=== PATIENT | male | born 1935 | race Caucasian/White ===

== ENCOUNTER → 2018-07-17 | Outpatient (CLI) | payer MEDICARE ==
--- NOTE | 2018-07-17 17:08 | Diagnostic Imaging Report ---
PROCEDURE: X-RAY MODIFIED BARIUM SWALLOW COMPARISON: None. INDICATION: Pharyngeal dysphagia Radiation Details: Fluoroscopy time: 1 minute, 21 seconds Cumulative dose: 0.94 mGy Cumulative dose area product: 34.8 cGycm2 DISCUSSION: Fluoroscopic examination was performed in conjunction with speech pathology during swallowing a variety of thin and thick liquid consistencies. Due to technical issues, cine loop images could not be stored. A small number of fluoroscopic still images were provided. Laryngeal penetration is demonstrated. The provided images do not demonstrate aspiration, although the speech pathology report notes one instance of trace aspiration with thin liquids. CONCLUSION: Modified barium swallow as above. Due to technical difficulty, the majority of images were not stored. Laryngeal penetration is demonstrated. Please refer to the speech pathology report for further details of trace aspiration. Signed by: Dr. Soheila Ha MD on 07/17/2018 5:05 PM
== END ==
LOC: DX 11:59
PROVIDERS: ATTEND Otolaryngology
DX: R13.13 Dysphagia, pharyngeal phase (principal)
CPT/HCPCS: 74230

== ENCOUNTER 2018-08-09 11:55 | Outpatient (RCR) | payer MEDICARE ==
--- NOTE | 2018-08-09 17:23 | NUR ---
Clinical Swallow Evaluation/Initial Treatment Session Patient is a 66 year old male with diagnosis of dysphagia. Per pts spouse, pt was diagnosed with Parkinsons approximately 10 years ago and is under the care of a neurologist. Pt participated in a modified barium swallow study on 07/17/18. Pt presented with moderate pharyngeal dysphagia c/b significant pharyngeal residue after the swallow and trace aspiration of thin liquids. Dysphagia was judged to be secondary to decreased hyolaryngeal excursion, decreased base of tongue strength, and decreased pharyngeal constriction during the swallow. Recommendation was made for dysphagia therapy to increase strength and coordination of swallow. Patient was seen today in the outpatient clinic for initial treatment of Neuromuscular Electrical Stimulation (NMES) with VitalStim Therapy and traditional dysphagia therapy with pharyngeal exercises. Pt was seen with spouse present. Oral motor exam revealed function that was grossly within normal limits. Patient tolerated room air. Hearing appeared to be WFL. Patient reported no change in his swallow skills since the modified barium swallow study. Pt confirmed that pt continues to choke and cough during meal times. Wet vocal quality noted during conversation. Provided extensive education re: need for therapy, purpose of exercises and NMES, and future plan of care. Pt indicated understanding. Pt was given water and hard candy. Pt was instructed to take small bites/sips and swallow hard, feeling all the muscles in his throat contract. Placement 3b was used to target the mylohyoid muscle, the anterior belly of the digastric muscle, the sternohyoid muscle, the omohyoid muscle, the geniohyoid muscle, and the middle pharyngeal constrictors. Channel 1 of the electrodes was aligned horizontally just above the hyoid bone and channel 2 of the electrodes was aligned horizontally at the level of the thyroid notch. This placement was used to improve base of tongue strength, pharyngeal constriction, and UES function. Pt initially tolerated 5.0 mA, but as the session progressed pt tolerated 9.0 mA. Pt received 45 minutes of stimulation. Cough noted X 3, throat clear X 2, and wet vocal quality was noted throughout the evaluation. During NMES an exercise program was presented, demonstrated, and discussed. Pt completed the exercises with moderate assistance. A home program was assigned. Pt verbalized understanding of the home exercise program. Education provided as indicated. All questions were answered. Pt/spouse stated that it would be better to attend treatment twice per week due to patient fatigue. Impressions: Pt tolerated initial session of NMES well. He continues to report and demonstrate s/s of aspiration during meals which significantly interferes with his quality of life. Pt is an excellent candidate for dysphagia exercises and NMES for improvement of strength and coordination of swallow. Recommendations: 1.Dysphagia therapy to include traditional exercises and NMES 2X/week for 6 weeks for a total of 12 treatment sessions 2.Home exercise program 3.Repeat MBS in 6 weeks with new goals to be determined at that time. Electronic Installer Goal: Pt will tolerate least restrictive diet without s/s of aspiration as judged by an objective evaluation. Short Term Goals: 1.Pt will complete 3 repetitions of a set of dysphagia exercises to improve laryngeal elevation, base of tongue retraction, and laryngeal closure, 10 repetitions per exercise, with minimal cues. 2.Pt will tolerate NMES for 45 60 minutes with no clinical s/s of aspiration to improve strength of pharyngeal constrictors, hyolaryngeal excursion, and safety with po intake. 3.Pt will complete home dysphagia exercise program targeting laryngeal elevation, base of tongue strength, and cricopharyngeal function independently. 4.Pt will follow aspiration precautions with independence. 5.Pt will participate in a repeat Modified Barium Swallow study to objectively re-assess swallow safety and function and determine safest diet. Senait Stapleton M.A. [facility] Date of Session: 08/09/18 Dysphagia Evaluation X 64 minutes JOSEPH NOMS Rating for Swallowing: Level 5
== END 2018-08-13 ==
LOC: ST 11:55
PROVIDERS: ATTEND Otolaryngology
DX: R13.13 Dysphagia, pharyngeal phase (principal); G20 Parkinson's disease

== ENCOUNTER 2018-09-12 13:00 | Outpatient (RCR) | payer MEDICARE ==
--- NOTE | 2018-09-12 15:35 | NUR ---
Clinical Swallow Re-Evaluation Patient is a 66 year old male with diagnosis of dysphagia. Per pts spouse, pt was diagnosed with Parkinsons approximately 10 years ago and is under the care of a neurologist. Pt participated in a modified barium swallow study on 07/17/18. Pt presented with moderate pharyngeal dysphagia c/b significant pharyngeal residue after the swallow and trace aspiration of thin liquids. Dysphagia was judged to be secondary to decreased hyolaryngeal excursion, decreased base of tongue strength, and decreased pharyngeal constriction during the swallow. Recommendation was made for dysphagia therapy to increase strength and coordination of swallow. Patient has attended 10 therapy sessions with of Neuromuscular Electrical Stimulation (NMES) with VitalStim Therapy and traditional dysphagia therapy with pharyngeal exercises. Short term goals and progress follow: 1.Pt will complete 3 repetitions of a set of dysphagia exercises to improve laryngeal elevation, base of tongue retraction, and laryngeal closure, 10 repetitions per exercise, with minimal cuespt completed exercises with maximal cues. 2.Pt will tolerate NMES for 45 60 minutes with no clinical s/s of aspiration to improve strength of pharyngeal constrictors, hyolaryngeal excursion, and safety with po intakept tolerated 60 minutes of NMES with thin liquid and hard candy at a max of 19.5 mA. Placement 2b was used to target the mylohyoid muscle, the sternohyoid muscle, the omohyoid muscle, the geniohyoid muscle, the thyrohyoid muscle, and the superior laryngeal nerve. Channel 1 of the electrodes was aligned along midline over the geniohyoid belly and channel 2 of the electrodes was aligned horizontally on either side of the thyroid notch. This placement was used to improve base of tongue strength, hyolaryngeal excursion, and UES opening. Cough noted X 3, throat clear X 1, wet vocal quality X 3. 3.Pt will complete home dysphagia exercise program targeting laryngeal elevation, base of tongue strength, and cricopharyngeal function independentlypt/spouse reported daily attempts to complete exercises at home; however, per spouse, pt has significant difficulty following commands and completing exercises. 4.Pt will follow aspiration precautions with independencept reported following aspiration precautions with cues. 5.Pt will participate in a repeat Modified Barium Swallow study to objectively re-assess swallow safety and function and determine safest dietscheduled 09/21/18. Impressions: Pt tolerates treatment well and reports less coughing and choking with meals. However, he continues to report and demonstrate occasional s/s of aspiration during meals which significantly interferes with his quality of life. Continued treatment is recommended to complete the recommended 12 sessions of therapy. Recommendations: 1.Dysphagia therapy to include traditional exercises and NMES 2X/week for 1 week 2.Home exercise program 3.Repeat MBS in 1 week with new goals to be determined at that time Long-Term Goal: Pt will tolerate least restrictive diet without s/s of aspiration as judged by an objective evaluation. Short Term Goals: 1.Pt will complete 3 repetitions of a set of dysphagia exercises to improve laryngeal elevation, base of tongue retraction, and laryngeal closure, 10 repetitions per exercise, with minimal cues. 2.Pt will tolerate NMES for 45 60 minutes with no clinical s/s of aspiration to improve strength of pharyngeal constrictors, hyolaryngeal excursion, and safety with po intake. 3.Pt will complete home dysphagia exercise program targeting laryngeal elevation, base of tongue strength, and cricopharyngeal function independently. 4.Pt will follow aspiration precautions with independence. 5.Pt will participate in a repeat Modified Barium Swallow study to objectively re-assess swallow safety and function and determine safest diet. Senait Stapleton M.A. [employer] Date of Session: 09/12/18 Dysphagia Evaluation X 64 minutes NOMS Rating for Swallowing: Level 5
== END 2018-09-13 ==
LOC: ST 13:00
PROVIDERS: ATTEND Otolaryngology
DX: R13.13 Dysphagia, pharyngeal phase (principal); G20 Parkinson's disease

== ENCOUNTER → 2018-09-21 | Outpatient (CLI) | payer MEDICARE ==
--- NOTE | 2018-09-22 09:44 | Diagnostic Imaging Report ---
PROCEDURE: X-RAY MODIFIED BARIUM SWALLOW COMPARISON: Modified barium swallow of 07/18/2019. INDICATION: Aspiration Radiation Details: Fluoroscopy time: 2.3 minutes Cumulative dose: 10.5 mGy DISCUSSION: Fluoroscopic examination was performed in conjunction with speech pathology during swallowing a variety of thin and thick liquid consistencies. Provided images demonstrate silent laryngeal penetration and one episode of silent aspiration. CONCLUSION: Modified barium swallow demonstrating silent laryngeal penetration and one episode of silent aspiration. Please refer to the speech pathology report for further details. Signed by: Denita Churchill MD on 09/22/2018 9:40 AM
== END ==
LOC: DX 12:39
PROVIDERS: ATTEND Otolaryngology
DX: R13.13 Dysphagia, pharyngeal phase (principal)
CPT/HCPCS: 74230

== ENCOUNTER 2018-10-12 12:53 | Outpatient (RCR) | payer MEDICARE | END 2018-10-14 | LOC: ST 12:53 | PROVIDERS: ATTEND Otolaryngology | DX: R13.13 Dysphagia, pharyngeal phase (principal); G20 Parkinson's disease ==

== ENCOUNTER 2018-10-26 13:00 | Outpatient (RCR) | payer MEDICARE | END 2018-11-13 | LOC: ST 13:00 | PROVIDERS: ATTEND Otolaryngology | DX: R13.13 Dysphagia, pharyngeal phase (principal) ==

== ENCOUNTER → 2018-11-07 | Outpatient (CLI) | payer MEDICARE ==
--- NOTE | 2018-11-07 16:25 | Diagnostic Imaging Report ---
PROCEDURE: X-RAY MODIFIED BARIUM SWALLOW COMPARISON: Modified barium swallow of 09/21/2018 INDICATION: Dysphasia Radiation Details: Fluoroscopy time: 1.6 minutes Cumulative dose: 4.0 mGy DISCUSSION: Fluoroscopic examination was performed in conjunction with speech pathology during swallowing a variety of thin and thick liquid consistencies. Provided images demonstrate laryngeal penetration but no aspiration. CONCLUSION: Modified barium swallow demonstrating laryngeal penetration but no aspiration. Please refer to the speech pathology report for further details. Signed by: Denita Churchill MD on 11/07/2018 4:22 PM
== END ==
LOC: DX 12:36
PROVIDERS: ATTEND Otolaryngology
DX: R13.13 Dysphagia, pharyngeal phase (principal); G20 Parkinson's disease
CPT/HCPCS: 74230